=== PATIENT | male | born 1970 | race Two or more races ===

== ENCOUNTER 2025-03-27 06:19 | Day surgery (SDC) | payer BC, SELFPAY | END 2025-03-27 12:16 | disposition home or self-care (01) | LOC: GI 06:19 | PROVIDERS: ATTENDING PHYSICIAN Internal Medicine | DX: Z12.11 Encounter for screening for malignant neoplasm of colon (principal); K64.8 Other hemorrhoids; K63.5 Polyp of colon; K63.9 Disease of intestine, unspecified | CPT/HCPCS: 45385; 45380; 88305 ==